=== PATIENT | male | born 1975 | race Caucasian/White ===

== ENCOUNTER → 2020-12-20 | Outpatient (CLI) | payer OTHER ==
--- NOTE | 2020-12-20 15:32 | RAD ---
Three-view facial bone series Clinical indications: Right orbital/maxillary area trauma with swelling. FINDINGS: The paranasal sinuses are clear without air-fluid levels. Orbital floors and orbits appear intact on both sides. Mandible appears intact. Nasal bones and nasal spine appear intact. No skull fr acture is seen. No metallic foreign body is apparent. IMPRESSION: No acute fracture is evident. Electronically signed by: Emanuel Yun MD (12/20/2020 3:30 PM) [id number]
== END ==
LOC: RAD 15:01
PROVIDERS: ATTEND Nurse Practitioner Family
DX: S09.93XA Unspecified injury of face, initial encounter (principal); X58.XXXA Exposure to other specified factors, initial encounter; Y93.89 Activity, other specified; Y92.89 Other specified places as the place of occurrence of the external cause; Y99.8 Other external cause status
CPT/HCPCS: 70150

== ENCOUNTER 2021-03-12 11:10 | Emergency (ER) | payer OTHER ==
[~2021-03-12] VITALS: Ht 180.3 cm; Wt 90.9 kg
[2021-03-12 12:05] VITALS: BP 139/94
[2021-03-12] MEDS ORDERED: AMOX1TAB61 PO (12:44)
--- NOTE | 2021-03-12 12:44 | PHYS DOC ---
Past History Additional Past Medical Histor: sinus infections Past Surgical History: No Surgical History Smoking: Non-smoker Alcohol Use: None Drug Use: None General Adult HPI: HPI: Patient is a 45-year-old male that comes in today with sinus pain. Patient states over the last 3 weeks he has had increased sinus pain in the maxillary area, he is also had a large amount of nasal drainage which is green and or bloody in nature. Patient states that his teeth are also painful as well as his eyes are also painful as well. Patient denies fever and chills. Denies cough, does state that his ears feel full and he has started himself on Zyrtec to help with the the congestion in his ears. Review of Systems: Review of Systems: Constitutional: Denies fever or chills Eyes: Denies change in visual acuity HENT: Sinus pain Respiratory: Denies cough or shortness of breath Cardiovascular: Denies chest pain or edema GI: Denies abdominal pain, nausea, vomiting, bloody stools or diarrhea : Denies dysuria Musculoskeletal: Denies back pain or joint pain Integument: Denies rash Neurologic: Denies headache, focal weakness or sensory changes Endocrine: Denies polyuria or polydipsia Lymphatic: Denies swollen glands Psychiatric: Denies depression or anxiety Allergies: Allergies: NKDA Physical Exam: PE: Constitutional: Well developed, well nourished, no acute distress, non-toxic appearance. [] HENT: Normocephalic, atraumatic, bilateral external ears normal, oropharynx reddened and moist, tonsils within normal limits, no exudate noted on the tonsils, tympanic membranes bulging no erythema noted, patient had pain with palpation at the ethmoid sinuses [] Eyes: PERRLA, EOMI, conjunctiva normal, no discharge. [] Neck: Normal range of motion, no tenderness, supple, no stridor. [] Cardiovascular:Heart rate regular rhythm, no murmur [] Lungs & Thorax: Bilateral breath sounds clear to auscultation [] Abdomen: Bowel sounds normal, soft, no tenderness, no masses, no pulsatile masses. [] Skin: Warm, dry, no erythema, no rash. [] Back: No tenderness, no CVA tenderness. [] Extremities: No tenderness, no cyanosis, no clubbing, ROM intact, no edema. [] Neurologic: Alert and oriented X 3, normal motor function, normal sensory function, no focal deficits noted. [] Psychologic: Affect normal, judgement normal, mood normal. [] Current Patient Data: Vital Signs: Vital Signs Date Time Temp Pulse Resp B/P (MAP) Pulse Ox O2 Delivery O2 Flow Rate FiO2 03/12/21 12:05 98.3 87 16 139/94 (109) 97 EKG: EKG: [] Radiology/Procedures: Radiology/Procedures: [] Heart Score: C/O Chest Pain: N/A Risk Factors: Risk Factors: DM, Current or recent (<one month) smoker, HTN, HLP, family history of CAD, obesity. Risk Scores: Score 0 - 3: 2.5% MACE over next 6 weeks - Discharge Home Score 4 - 6: 20.3% MACE over next 6 weeks - Admit for Clinical Observation Score 7 - 10: 72.7% MACE over next 6 weeks - Early Invasive Strategies Course & Med Decision Making: Course & Med Decision Making Pertinent Labs and Imaging studies reviewed. (See chart for details) We will send patient home with antibiotics for sinus infection, have patient follow-up with his clinic in the next 5 to 7 days if no better Sabrina Disclaimer: [employer] Disclaimer: This electronic medical record was generated, in whole or in part, using a voice recognition dictation system. Departure Departure: Impression: Primary Impression: Sinus infection Qualified Codes: J01.90 - Acute sinusitis, unspecified Disposition: HOME / SELF CARE / HOMELESS Condition: STABLE Referrals: PA HIDALGO DO, [facility] (PCP) Patient Instructions: Sinusitis Additional Instructions: Augmentin 875 take 1 tablet twice daily for the next 7 days Take a decongestant [id number] as labeled directed Continue with Zyrtec on a daily basis May also try some Flonase 2 sprays each nares twice daily to help with sinus congestion Follow-up with the primary care physician in the next 5 to 7 days for further management Scripts Amoxicillin/Potassium Clav (AUGMENTIN 875-125 TABLET) 1 Each Tablet 1 TAB PO BID for Sinus infection for 10 Days, #20 TAB 0 Refills Prov: MARIUSZ RODRIGUEZ APRN 03/12/21 MARIUSZ RODRIGUEZ APRN Mar 12, 2021 12:44
== END 2021-03-12 12:51 | disposition home or self-care (01) ==
LOC: ER 11:10
DX: J01.90 Acute sinusitis, unspecified (principal)
CPT/HCPCS: 99283